=== PATIENT | female | born 1990 | race Caucasian/White ===

== ENCOUNTER 2019-04-16 08:22 | Observation (INO) | payer BC, SELFPAY ==
[~2019-04-16] VITALS: Ht 157.5 cm; Wt 72.0 kg
--- NOTE | 2019-04-16 08:57 | NUR ---
FIRST CONTACT WITH PT. PT C/O RIGHT SIDED LOWER ABDOMINAL PAIN SINCE TUESDAY NIGHT. DIARRHEA, DECREASED APPETITE. PT'S AOX4. RESPS EVEN AND UNLABORED. BP/SPO2 MONITORS IN PLACE. CALL LIGHT WITHIN REACH. PA AT BEDSIDE TO EVALUATE AT THIS TIME.
--- NOTE | 2019-04-16 08:58 | NUR ---
PT PROVIDED URINE SAMPLE. UA SENT.
[2019-04-16] MEDS ORDERED: ONDANSETRON 2MG/ML, 2ML ONE ×3 (09:00→15:44)
[2019-04-16] MEDS ORDERED: SODIUM CHLORIDE FLUSH 10ML SYR IVF ONE (09:00)
[2019-04-16] MEDS ORDERED: ONDANSETRON 2MG/ML, 2ML IVPush ONE ×2 (09:00→16:00)
--- NOTE | 2019-04-16 09:04 | NUR ---
PT REFUSED ZOFRAN AT THIS TIME.
[2019-04-16 09:15] LABS: MICROSCOPIC NOT IND
[2019-04-16 09:16] LABS: CULTURE INDICATED? NO
[2019-04-16 09:27] LABS: BASOPHILS # (AUTO) 0.03 x10^3/uL (0-0.1); BASOPHILS % (AUTO) 0 % (0-1); EOSINOPHILS % (AUTO) 1 % (1-7); LYMPHOCYTES # (AUTO) 2.18 x10^3/uL (1-3.4); LYMPHOCYTES % (AUTO) 24 % (22-44); MD NO; MEAN CORPUSCULAR HEMOGLOBIN 27.7 pg (27.0-34.8); MEAN CORPUSCULAR HGB CONC 33.2 g/dL (32.4-35.8); MEAN CORPUSCULAR VOLUME 83.6 fL (80-100); MEAN PLATELET VOLUME 8.3 fL (7.4-10.4); MONOCYTES # (AUTO) 0.41 x10^3/uL (0.2-0.8); MONOCYTES % (AUTO) 5 % (2-9); NEUTROPHILS # (AUTO) 6.52 x10^3/uL (1.8-6.8); NEUTROPHILS % (AUTO) 71 % (42-75); PLATELET COUNT 275 x10^3/uL (130-400)
[2019-04-16 09:33] LABS: ALANINE AMINOTRANSFERASE 19 U/L (12-78); ALBUMIN 3.2 g/dL (3.4-5.0); ANION GAP 9 mmol/L (5-15); CALCIUM 8.7 mg/dL (8.5-10.1); CHLORIDE 108 mmol/L (98-107); CREATININE 0.81 mg/dL (0.55-1.02)
[2019-04-16 09:38] LABS: ALKALINE PHOSPHATASE 66 U/L (45-117); BILIRUBIN,TOTAL 0.5 mg/dL (0.2-1.0); TOTAL PROTEIN 7.4 g/dL (6.4-8.2)
[2019-04-16] MEDS ORDERED: OMNIPAQUE 350 MG/ML, 100ML BOTTLE ONE (10:28)
--- NOTE | 2019-04-16 10:37 | NUR ---
MED ORDERED FROM PHARMACY.
[2019-04-16] MEDS ORDERED: CEFOTETAN PMX 1GM/50ML 50 ML IV ONE (11:00)
--- NOTE | 2019-04-16 11:02 | NUR ---
ABX INFUSING AT THIS TIME. PT TOLERATED WELL.
[2019-04-16] MEDS ORDERED: ROCURONIUM 10MG/ML,5ML ONE (11:18)
[2019-04-16] MEDS ORDERED: KETOROLAC 30 MG/1 ML ONE (11:18)
[2019-04-16] MEDS ORDERED: SUGAMMADEX 200 MG/2 ML IVPush ONE (11:18)
[2019-04-16] MEDS ORDERED: PROPOFOL 10 MG/ML, 20ML ONE (11:18)
[2019-04-16] MEDS ORDERED: DEXAMETHASONE 4 MG/ML, 1ML ONE (11:18)
--- NOTE | 2019-04-16 12:46 | NUR ---
ABX STILL INFUSING AT THIS TIME. PT'S AOX4. RESPS EVEN AND UNLABORED. FAMILY AT BEDSIDE AT THIS TIME.
--- NOTE | 2019-04-16 13:54 | NUR ---
[facility] AND UNLABORED. BP/SPO2 MONITORS IN PLACE. CALL LIGHT WITHIN REACH.
--- NOTE | 2019-04-16 15:02 | NUR ---
pt requesting pain med at this time. pa notified.
[2019-04-16] MEDS ORDERED: APREPITANT 40 MG CAPSULE ONE ×2 (15:33→17:18)
[2019-04-16] MEDS ORDERED: HYDROmorphone 2 MG/ML, 1ML ONE (15:43)
[2019-04-16 15:47] VITALS: BP 105/62
--- NOTE | 2019-04-16 15:52 | NUR ---
PT MEDICATED PER EMAR. PT TOLERATED WELL.
[2019-04-16] MEDS ORDERED: HYDROmorphone 2 MG/ML, 1ML IVPush PRN ×2 (16:00→18:00)
[2019-04-16] MEDS ORDERED: BUPIVACAINE 0.25% ONE (16:45)
[2019-04-16] MEDS ORDERED: EPINEPHRINE 1 MG/ML, 1ML ONE (16:45)
[2019-04-16] MEDS ORDERED: MIDAZOLAM 1 MG/ML, 2ML ONE (16:52)
[2019-04-16] MEDS ORDERED: FENTANYL PF 250 MCG/5ML ONE (16:52)
[2019-04-16] MEDS ORDERED: BUPIVACAINE/PF 0.5% ONE (17:25)
[2019-04-16] MEDS ORDERED: PROMETHAZINE 25 MG/ML, 1ML IV PRN (18:00)
[2019-04-16] MEDS ORDERED: ACETAMINOPHEN 325 MG TABLET PO PRN (18:00)
[2019-04-16] MEDS ORDERED: OXYcodone 5 MG/5 ML ORAL.SOL UDC PO PRN (18:00)
[2019-04-16] MEDS ORDERED: hydrALAzine 20 MG/ML, 1ML IV PRN (18:00)
[2019-04-16] MEDS ORDERED: MEPERIDINE/PF 25MG/ML,1ML IVPush PRN (18:00)
[2019-04-16] MEDS ORDERED: FENTANYL PF 100 MCG/2ML ONE (18:57)
[2019-04-16] MEDS ORDERED: OXYcodone 5 MG/5 ML ORAL.SOL UDC ONE (18:57)
[2019-04-16] MEDS ORDERED: ACETAMINOPHEN 650 MG/20.3 ML UDC ONE (18:57)
[2019-04-16] MEDS: FENTANYL PF 100 MCG/2ML IV PRN ×2 (19:00→19:15)
[2019-04-16] MEDS ORDERED: ACETAMINOPHEN 325 MG TABLET ONE (19:03)
[2019-04-16] MEDS ORDERED: HYDR-3652 PO (20:03)
== END 2019-04-16 21:45 | disposition home or self-care (01) ==
LOC: EDIP 10:38 → ED 10:52 → 4NE 19:55
PROVIDERS: ADMIT Surgery; ATTEND Surgery
DX: K35.30 Acute appendicitis with localized peritonitis, without perforation or gangrene (principal); Z79.899 Other long term (current) drug therapy
CPT/HCPCS: 36415; 44970; 74177; 80053; 81003; 83690; 84703; 85025; 88304; 96365; 96366; 96375; 99284; G0378; J0171; J1100; J1170; J1885; J2250; J2405; J2704; J3010; J3490; J8501; Q9967; S0020